=== PATIENT | male | born 1985 | race Caucasian/White ===

== ENCOUNTER 2016-12-03 09:53 | Inpatient (IN) | payer OTHER ==
[2016-12-03 12:51] VITALS: BMI 22.8
--- NOTE | 2016-12-03 16:28 | HP ---
COWS - Scale Resting Pulse: 1= [place] 81-100 Sweatin=Flushed/Facial Moisture Restless Observation: 3= Extraneous Movement Pupil Size: 2= Moderately Dilated Bone or Joint Aches: 2= Severe Diffuse Aches Runny Nose/ Eye Tearin= Runny Nose/Eyes GI Upset > 30mins: 3= Vomiting/Diarrhea Tremor Observation: 2= Slight Tremor Visible Yawning Observation: 2= >3x During Session Anxiety or Irritability: 2=Irritable/Anxious Goose Flesh Skin: 0=Smooth Skin COWS Score: 21 CIWA Score - CIWA Score Nausea/Vomitin Muscle Tremors: 3 Anxiety: 3 Agitation: 3 Paroxysmal Sweats: 2 Orientation: 0-Oriented Tacttile Disturbances: 2-Mild Itch/Numbness/Burn Auditory Disturbances: 2-Mild Harshness/Frighten Visual Disturbances: 2-Mild Sensitivity Headache: 2-Mild CIWA-Ar Total Score: 22 Admission ROS BHS - HPI Chief Complaint: i need help to stop using drugs heroin,xanax,cocaine Allergies/Adverse Reactions: Allergies Allergy/AdvReac Type Severity Reaction Status Date / Time No Known Allergies Allergy Verified 12/03/16 16:18 History of Present Illness: this 31 years old male with heroin,xanax and cocaine dependence,seeking help for detox,last treatment [facility]09[facility]01 anxiety,depression,insomnia nicotine dependence longest sobriety 2 years multiple admissions in the past,keep relapsing Exam Limitations: No Limitations - Ebola screening Have you traveled outside of the country in the last 21 days: No Have you been sick,other than usual withdrawal symptoms: No - Review of Systems Constitutional: Chills, Diaphoresis, Loss of Appetite, Malaise, Night Sweats, Changes in sleep, Weakness, Unintentional Wgt. Loss EENT: reports: Tearing, Nose Congestion Respiratory: reports: No Symptoms reported Cardiac: reports: No Symptoms Reported GI: reports: Diarrhea, Nausea, Vomiting, Abdominal cramping : reports: No Symptoms Reported Musculoskeletal: reports: Back Pain, Joint Pain, Muscle Pain, Joint Stiffness Integumentary: reports: Dryness Neuro: reports: Headache, Tremors Endocrine: reports: No Symptoms Reported Hematology: reports: No Symptoms Reported Psychiatric: reports: Anxious, Depressed, other (insomnia) Patient History - Patient Medical History Hx Anemia: No Hx Asthma: No Hx Chronic Obstructive Pulmonary Disease (COPD): No Hx Cancer: No Hx Cardiac Disorders: No Hx Congestive Heart Failure: No Hx Hypertension: No Hx Hypercholesterolemia: No Hx Pacemaker: No HX Cerebrovascular Accident: No Hx Seizures: No Hx Dementia: No Hx Diabetes: No Hx Gastrointestinal Disorders: No Hx Liver Disease: No Hx Genitourinary Disorders: No Hx Sexually Transmitted Disorders: No Hx Renal Disease (ESRD): No Hx Thyroid Disease: No Hx Human Immunodeficiency Virus (HIV): No (last 09/01 negative) Hx Hepatitis C: No Hx Depression: Yes (anxiety,insomnia) Hx Suicide Attempt: No Hx Bipolar Disorder: No Hx Schizophrenia: No Other Medical History: no suicidal,no homicidal - Patient Surgical History Past Surgical History: No - PPD History Previous Implant?: Yes Documented Results: Negative w/o proof Implanted On Prior [facility] Admission?: No PPD to be Administered?: Yes - Smoking Cessation Smoking history: Current every day smoker Have you smoked in the past 12 months: Yes Aproximately how many cigarettes per day: 20 Cigars Per Day: 0 Hx Chewing Tobacco Use: No Initiated information on smoking cessation: Yes 'Breaking Loose' booklet given: 12/03/16 - Substance & Tx. History Hx Alcohol Use: No Hx Substance Use: Yes Substance Use Type: Cocaine, Heroin, Tranquilizers Hx Substance Use Treatment: Yes ([facility] 09/01) - Substances Abused Heroin Route: Injection Frequency: Daily Amount used: 15 bags Age of first use: 25 Date of Last Use: 12/03/16 Alprazolam (Xanax) Route: Oral Frequency: Daily Amount used: 4mg Age of first use: 12 Date of Last Use: 12/02/16 Cocaine Route: Injection Frequency: Daily Amount used: 1 gram Age of first use: 18 Date of Last Use: 12/02/16 Family Disease History - Family Disease History Family History: Denies Admission Physical Exam BHS - Vital Signs Vital Signs: Vital Signs - 24 hr 12/03/16 12:49 Temperature 96.0 F L Pulse Rate 87 Respiratory 18 Rate Blood Pressure 124/74 - Physical General Appearance: Yes: Moderate Distress, Tremorous, Irritable, Sweating, Anxious HEENTM: Yes: Normocephalic, BELEN, Pharynx Normal Respiratory: Yes: Lungs Clear, Normal Breath Sounds, No Respiratory Distress Neck: Yes: Within Normal Limits, Supple, Trachea in good position Breast: Yes: Within Normal Limits Cardiology: Yes: Within Normal Limits, Regular Rhythm, Regular Rate, S1, S2 Abdominal: Yes: Within Normal Limits, Normal Bowel Sounds, Non Tender, Flat, Soft Genitourinary: Yes: Within Normal Limits Back: Yes: Muscle Spasm Musculoskeletal: Yes: full range of Motion, Back pain, Joint Stiffness, Muscle Pain Extremities: Yes: Normal Range of Motion, Tremors Neurological: Yes: nurse midwife II-XII NML intact, Alert, Motor Strength 5/5 Integumentary: Yes: Dry, Track Luther Lymphatic: Yes: Within Normal Limits - Diagnostic (1) Opioid dependence with withdrawal Current Visit: Yes Status: Acute (2) Cocaine dependence Current Visit: Yes Status: Acute (3) Uncomplicated sedative, hypnotic or anxiolytic withdrawal Current Visit: Yes Status: Acute (4) Anxiety and depression Current Visit: Yes Status: Acute (5) Insomnia Current Visit: Yes Status: Acute (6) Weight loss Current Visit: Yes Status: Acute Cleared for Admission [facility] - Detox or Rehab [facility] Level of Care: Medically Managed Detox Regimen/Protocol: Methadone [facility] Breath Alcohol Content Breath Alcohol Content: 0 Urine Drug Screen - Results Drug Screen Negative: No Urine Drug Screen Results: THC-Marijuana, ABUNDIO-Cocaine, OPI-Opiates
[2016-12-03] MEDS ORDERED: MAGNESIUM HYDROX 2400MG/30ML ORAL SUSPENSION 30 ML CUP PO PRN (16:38)
[2016-12-03] MEDS ORDERED: LOPERAMIDE HCL 2 MG CAPSULE PO PRN (16:38)
[2016-12-03] MEDS ORDERED: MAGNESIUM CITRATE 300 ML BOTTLE PO PRN (16:38)
[2016-12-03] MEDS ORDERED: guaiFENesin/D-METHORPHAN HB 10 ML UNIT-DOSE CUPS PO PRN (16:38)
[2016-12-03] MEDS ORDERED: MAG HYDROX/AL HYDROX/SIMETH 30 ML UNIT-DOSE CUP PO PRN (16:38)
[2016-12-03] MEDS ORDERED: MENTHOL/PHENOL 1 EACH UD MM PRN (16:38)
[2016-12-03] MEDS ORDERED: P-EPHED 60MG/TRIPROLIDI 2.5MG TABLET PO PRN (16:38)
[2016-12-03] MEDS ORDERED: IBUPROFEN 400 MG TABLET (FP) PO PRN (16:38)
[2016-12-03] MEDS ORDERED: ACETAMINOPHEN 325 MG TABLET (FP) PO PRN (16:38)
[2016-12-03] MEDS: diazePAM 5 MG TABLET PO PRN ×2 (17:09→22:05)
[2016-12-03] MEDS: NICOTINE 21 MG/24 HOURS TOPICAL PATCH TD SCH (17:14)
[2016-12-03] MEDS ORDERED: METHADONE HCL 10 MG TABLET (FOR DETOX USE ONLY) PO ONE ×2 (17:15→23:00)
[2016-12-03] MEDS: NICOTINE POLACRILEX 4 MG GUM BUC PRN ×2 (18:05→23:11)
[2016-12-03] MEDS: CYCLOBENZAPRINE HCL 10 MG TABLET (FP) PO PRN (22:05)
[2016-12-03] MEDS: THIAMINE HCL 100 MG TABLET (FP) PO SCH (22:05)
[2016-12-03] MEDS: cloNIDine HCL 0.1 MG TABLET PO SCH (22:05)
[2016-12-03] MEDS: diphenhydrAMINE HCL 50 MG CAPSULE PO PRN (22:06)
[2016-12-04] MEDS: diazePAM 5 MG TABLET PO PRN ×4 (05:55→19:37)
--- NOTE | 2016-12-04 08:38 | CONSULT ---
[facility] Psychiatric Consult - Data Date of interview: 12/04/16 Admission source: [facility] Identifying data: This is 31 years old male with no psychiatric hospitalization history intoxicated with: Opioids, Cocaine, Xanax and Nicotine Substance Abuse History: Smoking history: Current every day smoker. Have you smoked in the past 12 months: Yes. Aproximately how many cigarettes per day: 20. Cigars Per Day: 0. Hx Chewing Tobacco Use: No. Initiated information on smoking cessation: Yes. 'Breaking Loose' booklet given: 12/03/16. - Substance & Tx. History. Hx Alcohol Use: No. Hx Substance Use: Yes. Substance Use Type : Cocaine, Heroin, Tranquilizers. Hx Substance Use Treatment: Yes ([facility] 09/01). - Substances Abused. Heroin. Route: Injection. Frequency : Daily. Amount used: 15 bags. Age of first use: 25. Date of Last Use: . Alprazolam (Xanax). Route: Oral. Frequency: Daily. Amount used: 4mg. Age of first use: 12. Date of Last Use: 12/02/16. Cocaine. Route: Injection. Frequency: Daily. Amount used: 1 gram. Age of first use: 18. Date of Last Use: 12/02/16. Family Disease History Medical History: Weight loss Psychiatric History: Patient reprots history of depression, reports taking prior to admission: Celexa 40mg poqd. Gabapentin 300mg po tid. Ambien 10mg po qhs Physical/Sexual Abuse/Trauma History: Denies Additional Comment: Celexa 40mg poqd. Gabapentin 300mg po tid. Ambien 10mg po qhs Mental Status Exam - Mental Status Exam Alert and Oriented to: Person Cognitive Function: Fair Patient Appearance: Unkempt Mood: Sad Affect: Mood Congruent Patient Behavior: Cooperative Speech Pattern: Appropriate Voice Loudness: Mildly Soft/Quiet Thought Process: Circumstantial Thought Disorder: Being Controlled Hallucinations: Denies Suicidal Ideation: Denies Homicidal Ideation: Denies Insight/Judgement: Fair Sleep: Difficulty falling asleep Appetite: Weight loss Muscle strength/Tone: Normal Gait/Station: Shuffling Additional Comments: Celexa 40mg poqd. Gabapentin 300mg po tid. Ambien 10mg po qhs Psychiatric Findings - Problem List ([place] 1, 2,3) (1) Cocaine dependence Current Visit: Yes Status: Acute (2) Opioid dependence with withdrawal Current Visit: Yes Status: Acute (3) Uncomplicated sedative, hypnotic or anxiolytic withdrawal Current Visit: Yes Status: Acute (4) Nicotine dependence Current Visit: Yes Status: Acute (5) Drug-induced mood disorder Current Visit: Yes Status: Acute - Initial Treatment Plan Initial Treatment Plan: Celexa 40mg poqd. Gabapentin 300mg po tid. Ambien 10mg po qhs
[2016-12-04 09:59] LABS: MCH 29.3 pg (25.7-33.7); MCHC 33.1 g/dl (32.0-35.9); MEAN CELL VOLUME 88.6 fl (80-96); MEAN PLT VOLUME 8.6 fl (7.5-11.1); PLATELET COUNT 220 K/MM3 (134-434); RDW 12.3 % (11.9-15.9); WHITE BLOOD COUNT 6.7 K/mm3 (4.0-10.0)
[2016-12-04] MEDS ORDERED: METHADONE HCL 10 MG TABLET (FOR DETOX USE ONLY) PO ONE (10:00)
[2016-12-04 10:08] LABS: ANION GAP 6 (8-16); BILIRUBIN,TOTAL 0.2 mg/dL (0.2-1.0); CALCIUM 8.7 mg/dL (8.5-10.1); CO2 30 mmol/L (21-32); CREATININE 0.9 mg/dL (0.7-1.3); GLUCOSE,RANDOM 78 mg/dL (74-106); SGOT/AST 10 U/L (15-37); SGPT/ALT 22 U/L (12-78); TOT PROT 5.9 g/dl (6.4-8.2)
[2016-12-04 10:09] LABS: ALK PHOS 58 U/L (45-117)
[2016-12-04] MEDS: CYCLOBENZAPRINE HCL 10 MG TABLET (FP) PO PRN ×2 (10:16→22:04)
[2016-12-04] MEDS: cloNIDine HCL 0.1 MG TABLET PO SCH ×2 (10:16→22:04)
[2016-12-04] MEDS: PRENATAL VITAMINS W/ FOLIC ACID TABLET (FP) PO SCH (10:16)
[2016-12-04] MEDS: NICOTINE 21 MG/24 HOURS TOPICAL PATCH TD SCH (10:17)
[2016-12-04] MEDS: CITALOPRAM HYDROBROMIDE 20 MG TABLET (FP) PO SCH (10:18)
[2016-12-04] MEDS: NICOTINE POLACRILEX 4 MG GUM BUC PRN ×2 (10:19→20:09)
[2016-12-04] MEDS ORDERED: ONDANSETRON *ODT* 4 MG TABLET SL PRN (10:35)
--- NOTE | 2016-12-04 11:54 | PN ---
S CIWA - CIWA Score Nausea/Vomitin Muscle Tremors: 3 Anxiety: 4-Mod. Anxious/Guarded Agitation: 1-Slight > Activity Paroxysmal Sweats: 3 Orientation: 0-Oriented Tacttile Disturbances: 3-Moderate Itch/Numb/Burn Auditory Disturbances: 0-None Visual Disturbances: 0-None Headache: 3-Moderate CIWA-Ar Total Score: 20 BHS COWS - Scale Resting Pulse: 0= [place] 80 or Below Sweatin=Flushed/Facial Moisture Restless Observation: 0= Sits Still Pupil Size: 0= Normal to Room Light Bone or Joint Aches: 2= Severe Diffuse Aches Runny Nose/ Eye Tearin= Runny Nose/Eyes GI Upset > 30mins: 2= Nausea/Diarrhea Tremor Observation of Outstretched Hands: 2= Slight Tremor Visible Yawning Observation: 2= >3x During Session Anxiety or Irritability: 2=Irritable/Anxious Goose Flesh Skin: 3=Piloerection COWS Score: 17 BHS Progress Note (SOAP) Subjective: Nausea, Tremors, H/A, Fatigue, Body Aches, Sweating. Objective: PT. A & O X 3. NO ACUTE DISTRESS. 12/04/16 11:53 Vital Signs Temperature 97 F L 12/04/16 09:12 Pulse Rate 65 12/04/16 09:12 Respiratory Rate 18 12/04/16 09:12 Blood Pressure 109/61 12/04/16 09:12 O2 Sat by Pulse Oximetry (%) Laboratory Tests 12/04/16 12/04/16 12/04/16 06:30 06:30 06:30 WBC 6.7 RBC 4.51 Hgb 13.2 Hct 39.9 MCV 88.6 MCH 29.3 MCHC 33.1 RDW 12.3 Plt Count 220 MPV 8.6 Sodium 141 Potassium 3.8 Chloride 105 Carbon Dioxide 30 Anion Gap 6 L BUN 13 Creatinine 0.9 Creat Clearance w eGFR > 60 Random Glucose 78 Calcium 8.7 Total Bilirubin 0.2 AST 10 L ALT 22 Alkaline Phosphatase 58 Total Protein 5.9 L Albumin 3.0 L RPR Titer Nonreactive LABS NOTED. UA NOT YET COLLECTED. 12/04/16 12:01 Assessment: 12/04/16 12:00 WITHDRAWAL SYMPTOMS. Plan: CONTINUE DETOX. PRN ZOFRAN SL FOR NAUSEA.
[2016-12-04 14:20] LABS: URINE APPEARANCE CLEAR; URINE BILIRUBIN NEGATIVE (NEGATIVE); URINE BLOOD NEGATIVE (NEGATIVE); URINE COLOR LTYELLOW; URINE GLUCOSE (UA) NEGATIVE (NEGATIVE); URINE KETONE NEGATIVE (NEGATIVE); URINE LEUK ESTERASE NEGATIVE (NEGATIVE); URINE NITRITE NEGATIVE (NEGATIVE); URINE PROTEIN NEGATIVE (NEGATIVE); URINE UROBILINOGEN NEGATIVE mg/dL (0.2-1.0)
[2016-12-04] MEDS: GABAPENTIN 300 MG CAPSULE (FP) PO SCH ×2 (14:53→22:04)
--- NOTE | 2016-12-04 16:37 | EKG ---
Test Reason : Blood Pressure : / mmHG Vent. Rate : 079 BPM Atrial Rate : 079 BPM P-R Int : 132 ms QRS Dur : 084 ms QT Int : 398 ms P-R-T Axes : 066 063 050 degrees QTc Int : 456 ms NORMAL SINUS RHYTHM NORMAL ECG NO PREVIOUS ECGS AVAILABLE Confirmed by NEELIMA HINSON MD ([id number]) on 12/04/2016 4:37:32 PM Referred By: Confirmed By:NEELIMA HINSON MD
[2016-12-04] MEDS: THIAMINE HCL 100 MG TABLET (FP) PO SCH (22:03)
[2016-12-04] MEDS: ZOLPIDEM TARTRATE 10 MG TABLET (PARK CARE ONLY) PO PRN (22:04)
[2016-12-05] MEDS: diazePAM 5 MG TABLET PO PRN ×5 (04:16→22:04)
[2016-12-05] MEDS: GABAPENTIN 300 MG CAPSULE (FP) PO SCH ×3 (07:39→22:04)
[2016-12-05] MEDS ORDERED: METHADONE HCL 5 MG TABLET (FOR DETOX USE ONLY) PO ONE (10:00)
[2016-12-05] MEDS: NICOTINE 21 MG/24 HOURS TOPICAL PATCH TD SCH (10:03)
[2016-12-05] MEDS: CITALOPRAM HYDROBROMIDE 20 MG TABLET (FP) PO SCH (10:04)
[2016-12-05] MEDS: PRENATAL VITAMINS W/ FOLIC ACID TABLET (FP) PO SCH (10:04)
[2016-12-05] MEDS ORDERED: GABAPENTIN 300 MG CAPSULE (FP) PO ONE (10:35)
[2016-12-05] MEDS: NICOTINE POLACRILEX 4 MG GUM BUC PRN ×3 (10:50→22:04)
--- NOTE | 2016-12-05 11:36 | PN ---
S CIWA - CIWA Score Nausea/Vomitin Muscle Tremors: 3 Anxiety: 4-Mod. Anxious/Guarded Agitation: 3 Paroxysmal Sweats: 3 Orientation: 0-Oriented Tacttile Disturbances: 1-Very Mild Itch/Numbness Auditory Disturbances: 0-None Visual Disturbances: 0-None Headache: 3-Moderate CIWA-Ar Total Score: 20 BHS Progress Note (SOAP) Subjective: Anxious, Lower Back ache ,H/A, Body Aches,Nausea, Tremors, Sweating. Objective: PT. A & O X 3, OBSERVED AMBULATING ON UNIT. NO ACUTE DISTRESS. 12/05/16 11:37 Vital Signs Temperature 97.4 F L 12/05/16 09:09 Pulse Rate 75 12/05/16 09:55 Respiratory Rate 20 12/05/16 09:09 Blood Pressure 109/66 12/05/16 09:55 O2 Sat by Pulse Oximetry (%) Laboratory Tests 12/04/16 12/04/16 12/04/16 06:30 06:30 06:30 WBC 6.7 RBC 4.51 Hgb 13.2 Hct 39.9 MCV 88.6 MCH 29.3 MCHC 33.1 RDW 12.3 Plt Count 220 MPV 8.6 Sodium 141 Potassium 3.8 Chloride 105 Carbon Dioxide 30 Anion Gap 6 L BUN 13 Creatinine 0.9 Creat Clearance w eGFR > 60 Random Glucose 78 Calcium 8.7 Total Bilirubin 0.2 AST 10 L ALT 22 Alkaline Phosphatase 58 Total Protein 5.9 L Albumin 3.0 L Urine Color Urine Appearance Urine pH Ur Specific [place] Urine Protein Urine Glucose (UA) Urine Ketones Urine Blood Urine Nitrite Urine Bilirubin Urine Urobilinogen Ur Leukocyte Esterase RPR Titer Nonreactive 12/04/16 12:30 WBC RBC Hgb Hct MCV MCH MCHC RDW Plt Count MPV Sodium Potassium Chloride Carbon Dioxide Anion Gap BUN Creatinine Creat Clearance w eGFR Random Glucose Calcium Total Bilirubin AST ALT Alkaline Phosphatase Total Protein Albumin Urine Color Ltyellow Urine Appearance Clear Urine pH 6.0 Ur Specific [place] 1.020 Urine Protein Negative Urine Glucose (UA) Negative Urine Ketones Negative Urine Blood Negative Urine Nitrite Negative Urine Bilirubin Negative Urine Urobilinogen Negative Ur Leukocyte Esterase Negative RPR Titer LABS NOTED. Assessment: 12/05/16 11:38 WITHDRAWAL SYMPTOMS. Plan: CONTINUE DETOX. D/C CLONIDINE DUE TO LAST SEVERAL LOW BP READINGS. INCREASE PO FLUID INTAKE.
[2016-12-05] MEDS: hydrOXYzine PAMOATE 50 MG CAPSULE (FP) PO PRN (16:45)
[2016-12-05] MEDS: ZOLPIDEM TARTRATE 10 MG TABLET (PARK CARE ONLY) PO PRN (22:04)
[2016-12-05] MEDS: THIAMINE HCL 100 MG TABLET (FP) PO SCH (22:04)
[2016-12-05] MEDS: CYCLOBENZAPRINE HCL 10 MG TABLET (FP) PO PRN (22:04)
[2016-12-06] MEDS: diazePAM 5 MG TABLET PO PRN ×3 (04:33→14:37)
[2016-12-06] MEDS: GABAPENTIN 300 MG CAPSULE (FP) PO SCH ×3 (05:53→21:54)
[2016-12-06] MEDS: NICOTINE POLACRILEX 4 MG GUM BUC PRN ×4 (05:59→22:35)
[2016-12-06] MEDS ORDERED: METHADONE HCL 5 MG TABLET (FOR DETOX USE ONLY) PO ONE (10:00)
[2016-12-06] MEDS: PRENATAL VITAMINS W/ FOLIC ACID TABLET (FP) PO SCH (10:31)
[2016-12-06] MEDS: CITALOPRAM HYDROBROMIDE 20 MG TABLET (FP) PO SCH (10:31)
[2016-12-06] MEDS: NICOTINE 21 MG/24 HOURS TOPICAL PATCH TD SCH (10:33)
--- NOTE | 2016-12-06 13:16 | PN ---
BHS Progress Note (SOAP) Subjective: Body Aches, Tremors, Sweating, Nausea, Stomach cramping, Interrupted sleep, Lower Back ache. Objective: PT. A & O X 3, OBSERVED AMBULATING ON UNIT. NO ACUTE DISTRESS. 12/06/16 13:15 Vital Signs Temperature 97.1 F L 12/06/16 09:57 Pulse Rate 76 12/06/16 09:57 Respiratory Rate 18 12/06/16 09:57 Blood Pressure 110/65 12/06/16 09:57 O2 Sat by Pulse Oximetry (%) Laboratory Tests 12/04/16 12/04/16 12/04/16 06:30 06:30 06:30 WBC 6.7 RBC 4.51 Hgb 13.2 Hct 39.9 MCV 88.6 MCH 29.3 MCHC 33.1 RDW 12.3 Plt Count 220 MPV 8.6 Sodium 141 Potassium 3.8 Chloride 105 Carbon Dioxide 30 Anion Gap 6 L BUN 13 Creatinine 0.9 Creat Clearance w eGFR > 60 Random Glucose 78 Calcium 8.7 Total Bilirubin 0.2 AST 10 L ALT 22 Alkaline Phosphatase 58 Total Protein 5.9 L Albumin 3.0 L Urine Color Urine Appearance Urine pH Ur Specific [place] Urine Protein Urine Glucose (UA) Urine Ketones Urine Blood Urine Nitrite Urine Bilirubin Urine Urobilinogen Ur Leukocyte Esterase RPR Titer Nonreactive 12/04/16 12:30 WBC RBC Hgb Hct MCV MCH MCHC RDW Plt Count MPV Sodium Potassium Chloride Carbon Dioxide Anion Gap BUN Creatinine Creat Clearance w eGFR Random Glucose Calcium Total Bilirubin AST ALT Alkaline Phosphatase Total Protein Albumin Urine Color Ltyellow Urine Appearance Clear Urine pH 6.0 Ur Specific [place] 1.020 Urine Protein Negative Urine Glucose (UA) Negative Urine Ketones Negative Urine Blood Negative Urine Nitrite Negative Urine Bilirubin Negative Urine Urobilinogen Negative Ur Leukocyte Esterase Negative RPR Titer LABS NOTED. Assessment: 12/06/16 13:15 WITHDRAWAL SYMPTOMS. Plan: CONTINUE DETOX.
[2016-12-06] MEDS: hydrOXYzine PAMOATE 50 MG CAPSULE (FP) PO PRN (21:54)
[2016-12-06] MEDS: ZOLPIDEM TARTRATE 10 MG TABLET (PARK CARE ONLY) PO PRN (21:54)
[2016-12-06] MEDS: diphenhydrAMINE HCL 50 MG CAPSULE PO PRN (21:55)
[2016-12-06] MEDS: THIAMINE HCL 100 MG TABLET (FP) PO SCH (21:55)
[2016-12-06] MEDS: CYCLOBENZAPRINE HCL 10 MG TABLET (FP) PO PRN (21:55)
[2016-12-07] MEDS: GABAPENTIN 300 MG CAPSULE (FP) PO SCH ×3 (05:26→22:02)
[2016-12-07] MEDS ORDERED: METHADONE HCL 10 MG TABLET (FOR DETOX USE ONLY) PO ONE (10:00)
[2016-12-07] MEDS: PRENATAL VITAMINS W/ FOLIC ACID TABLET (FP) PO SCH (10:06)
[2016-12-07] MEDS: CITALOPRAM HYDROBROMIDE 20 MG TABLET (FP) PO SCH (10:07)
[2016-12-07] MEDS: NICOTINE 21 MG/24 HOURS TOPICAL PATCH TD SCH (10:09)
[2016-12-07] MEDS: NICOTINE POLACRILEX 4 MG GUM BUC PRN ×4 (10:11→21:04)
--- NOTE | 2016-12-07 13:17 | PN ---
S Progress Note (SOAP) Subjective: Sweating, nausea, anxious Objective: 12/07/16 13:16 Last Vital Signs Temp Pulse Resp BP Pulse Ox 96.8 F L 82 18 134/72 12/07/16 10:00 12/07/16 10:00 12/07/16 10:00 12/07/16 10:00 Laboratory Tests 12/04/16 12/04/16 12/04/16 06:30 06:30 06:30 WBC 6.7 RBC 4.51 Hgb 13.2 Hct 39.9 MCV 88.6 MCH 29.3 MCHC 33.1 RDW 12.3 Plt Count 220 MPV 8.6 Sodium 141 Potassium 3.8 Chloride 105 Carbon Dioxide 30 Anion Gap 6 L BUN 13 Creatinine 0.9 Creat Clearance w eGFR > 60 Random Glucose 78 Calcium 8.7 Total Bilirubin 0.2 AST 10 L ALT 22 Alkaline Phosphatase 58 Total Protein 5.9 L Albumin 3.0 L Urine Color Urine Appearance Urine pH Ur Specific [place] Urine Protein Urine Glucose (UA) Urine Ketones Urine Blood Urine Nitrite Urine Bilirubin Urine Urobilinogen Ur Leukocyte Esterase RPR Titer Nonreactive 12/04/16 12:30 WBC RBC Hgb Hct MCV MCH MCHC RDW Plt Count MPV Sodium Potassium Chloride Carbon Dioxide Anion Gap BUN Creatinine Creat Clearance w eGFR Random Glucose Calcium Total Bilirubin AST ALT Alkaline Phosphatase Total Protein Albumin Urine Color Ltyellow Urine Appearance Clear Urine pH 6.0 Ur Specific [place] 1.020 Urine Protein Negative Urine Glucose (UA) Negative Urine Ketones Negative Urine Blood Negative Urine Nitrite Negative Urine Bilirubin Negative Urine Urobilinogen Negative Ur Leukocyte Esterase Negative RPR Titer Labs noted Assessment: 12/07/16 13:16 Withdrawal symptoms Plan: Continue detox Encouraged to drink lots of water for hydration
[2016-12-07] MEDS: CYCLOBENZAPRINE HCL 10 MG TABLET (FP) PO PRN ×2 (13:18→22:01)
[2016-12-07] MEDS: diphenhydrAMINE HCL 50 MG CAPSULE PO PRN (14:38)
[2016-12-07] MEDS: hydrOXYzine PAMOATE 50 MG CAPSULE (FP) PO PRN (17:17)
[2016-12-07] MEDS: ZOLPIDEM TARTRATE 10 MG TABLET (PARK CARE ONLY) PO PRN (21:59)
[2016-12-07] MEDS ORDERED: BACITRACIN 15 GM TUBE TOPICAL OINTMENT TP SCH (22:00)
[2016-12-07] MEDS: THIAMINE HCL 100 MG TABLET (FP) PO SCH (22:01)
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
[2016-12-08] MEDS: hydrOXYzine PAMOATE 50 MG CAPSULE (FP) PO PRN (05:48)
[2016-12-08] MEDS: GABAPENTIN 300 MG CAPSULE (FP) PO SCH (05:49)
[2016-12-08] MEDS: CYCLOBENZAPRINE HCL 10 MG TABLET (FP) PO PRN (05:49)
[2016-12-08] MEDS: NICOTINE POLACRILEX 4 MG GUM BUC PRN (05:59)
[2016-12-08] MEDS ORDERED: METHADONE HCL 5 MG TABLET (FOR DETOX USE ONLY) PO ONE (06:00)
[2016-12-08 06:34] VITALS: BP 120/71; PULSE 74; TEMP 97
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
== END 2016-12-08 08:59 | disposition home or self-care (01) | DRG 773 ==
LOC: YASAS 09:53 → Y3N 16:28
PROVIDERS: ADMIT Internal Medicine Addiction Medicine; ATTEND Internal Medicine Addiction Medicine
PROC: HZ2ZZZZ Detoxification Services for Substance Abuse Treatment (ICD-10-PCS; principal; 2016-12-03)
DX: F11.23 Opioid dependence with withdrawal (principal); F13.230 Sedative, hypnotic or anxiolytic dependence with withdrawal, uncomplicated; F14.20 Cocaine dependence, uncomplicated; F17.210 Nicotine dependence, cigarettes, uncomplicated; F19.24 Other psychoactive substance dependence with psychoactive substance-induced mood disorder; F41.8 Other specified anxiety disorders; G47.00 Insomnia, unspecified; Z87.898 Personal history of other specified conditions; S05.92XA Unspecified injury of left eye and orbit, initial encounter; Y04.0XXA Assault by unarmed brawl or fight, initial encounter; Y92.239 Unspecified place in hospital as the place of occurrence of the external cause
CPT/HCPCS: 36415; 80053; 81003; 85027; 86593; 93005; 93010

== ENCOUNTER 2016-12-07 23:48 | Emergency (ER) | payer OTHER ==
[2016-12-07 23:59] VITALS: BP 132/73; TEMP 98.1; BMI 24.3
[2016-12-08] MEDS ORDERED: OXYCODONE/APAP 5/325MG COMBO TABLET PO ONE ×2 (00:31→02:13)
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
[2016-12-08] MEDS ORDERED: OXYCODONE/APAP 5/325MG COMBO TABLET ONE ×2 (00:38→02:20)
[2016-12-08 00:42] VITALS: PULSE 89
[2016-12-08] MEDS ORDERED: IBUPROFEN 400 MG TABLET (FP) PO ONE ×2 (02:13→02:20)
== END 2016-12-08 03:01 | disposition home or self-care (01) ==
LOC: JER 23:48
DX: S00.83XA Contusion of other part of head, initial encounter (principal); M54.2 Cervicalgia; Y04.2XXA Assault by strike against or bumped into by another person, initial encounter; Y93.89 Activity, other specified; Y92.89 Other specified places as the place of occurrence of the external cause; Y99.8 Other external cause status
CPT/HCPCS: 70450-TC; 70486-TC; 72125-TC; 99283-25

== ENCOUNTER 2017-02-26 16:27 | Inpatient (IN) | payer OTHER ==
[2017-02-26 19:10] VITALS: BMI 23.3
--- NOTE | 2017-02-26 20:29 | HP ---
COWS - Scale Resting Pulse: 0= MI 80 or Below Sweatin= Chills/Flushing Restless Observation: 1= Difficult to Sit Still Pupil Size: 0= Normal to Room Light Bone or Joint Aches: 2= Severe Diffuse Aches Runny Nose/ Eye Tearin= Runny Nose/Eyes GI Upset > 30mins: 2= Nausea/Diarrhea Tremor Observation: 2= Slight Tremor Visible Yawning Observation: 2= >3x During Session Anxiety or Irritability: 2=Irritable/Anxious Goose Flesh Skin: 0=Smooth Skin COWS Score: 14 CIWA Score - CIWA Score Nausea/Vomitin-Mild Nausea/No Vomiting Muscle Tremors: 3 Anxiety: 3 Agitation: 4-Moderately Restless Paroxysmal Sweats: 1-Minimal Palms Moist Orientation: 1-Uncertain about Date Tacttile Disturbances: 0-None Auditory Disturbances: 0-None Visual Disturbances: 0-None Headache: 1-Very Mild CIWA-Ar Total Score: 14 Admission ROS BHS - HPI Chief Complaint: withdrawal sx Allergies/Adverse Reactions: Allergies Allergy/AdvReac Type Severity Reaction Status Date / Time No Known Allergies Allergy Verified 12/07/16 23:55 History of Present Illness: 31 years old male with long history of opiate xanax nicotine dependence denies medical issue has anxiety and depression is admitted to detox Exam Limitations: No Limitations - Ebola screening Have you traveled outside of the country in the last 21 days: No Have you had contact with anyone from an Ebola affected area: No Have you been sick,other than usual withdrawal symptoms: No Do you have a fever: No - Review of Systems Constitutional: Loss of Appetite, Changes in sleep, Unintentional Wgt. Loss, Unexplained wgt Loss EENT: reports: No Symptoms Reported Respiratory: reports: No Symptoms reported Cardiac: reports: No Symptoms Reported GI: reports: Nausea, Poor Fluid Intake, Abdominal cramping : reports: No Symptoms Reported Musculoskeletal: reports: Back Pain, Joint Pain, Muscle Pain, Neck Pain Integumentary: reports: Change in Color (right and left arms iv opiate) Neuro: reports: Tremors Endocrine: reports: No Symptoms Reported Hematology: reports: No Symptoms Reported Psychiatric: reports: Judgement Intact, Orientated x3, Anxious, Depressed Other Systems: Reviewed and Negative Patient History - Patient Medical History Hx Anemia: No Hx Asthma: No Hx Chronic Obstructive Pulmonary Disease (COPD): No Hx Cancer: No Hx Cardiac Disorders: No Hx Congestive Heart Failure: No Hx Hypertension: No Hx Hypercholesterolemia: No Hx Pacemaker: No HX Cerebrovascular Accident: No Hx Seizures: No Hx Dementia: No Hx Diabetes: No Hx Gastrointestinal Disorders: No Hx Liver Disease: No Hx Genitourinary Disorders: No Hx Sexually Transmitted Disorders: No Hx Renal Disease (ESRD): No Hx Thyroid Disease: No Hx Human Immunodeficiency Virus (HIV): No (last 09/01 negative) Hx Hepatitis C: No Hx Depression: Yes (anxiety,insomnia) Hx Suicide Attempt: No Hx Bipolar Disorder: No Hx Schizophrenia: No - Patient Surgical History Past Surgical History: No - PPD History Previous Implant?: Yes Documented Results: Negative w/proof Implanted On Prior [facility] Admission?: Yes Date: 12/05/16 PPD to be Administered?: No - Smoking Cessation Smoking history: Current every day smoker Have you smoked in the past 12 months: Yes Aproximately how many cigarettes per day: 20 Cigars Per Day: 0 Hx Chewing Tobacco Use: No Initiated information on smoking cessation: Yes 'Breaking Loose' booklet given: 02/26/17 - Substance & Tx. History Hx Alcohol Use: No Hx Substance Use: Yes Substance Use Type: Cocaine, Heroin, Tranquilizers Hx Substance Use Treatment: Yes (12/03-12/08/16 [facility] - Substances Abused Alprazolam (Xanax) Route: Oral Frequency: 3-6 times per week Amount used: 12 mg Age of first use: 21 Date of Last Use: 02/25/17 Heroin Route: Injection Frequency: Daily Amount used: 30 bags Age of first use: 25 Date of Last Use: 02/26/17 Family Disease History - Family Disease History Family Disease History: Heart Disease: Mother (), Other: Father ( /ms), Mother Admission Physical Exam BHS - Vital Signs Vital Signs: Vital Signs - 24 hr 02/26/17 19:06 Temperature 98.5 F Pulse Rate 75 Respiratory 18 Rate Blood Pressure 102/66 - Physical General Appearance: Yes: Appropriately Dressed, Mild Distress, Thin, Tremorous, Irritable, Sweating, Anxious HEENTM: Yes: Hearing grossly Normal, Normal ENT Inspection, Normocephalic, Normal Voice Respiratory: Yes: Chest Non-Tender, Lungs Clear, Normal Breath Sounds, No Respiratory Distress, No Accessory Muscle Use Neck: Yes: Supple, Trachea in good position Breast: Yes: Breasts Symetrical Cardiology: Yes: Regular Rhythm, Regular Rate, S1, S2 Abdominal: Yes: Non Tender, Soft Genitourinary: Yes: Within Normal Limits Back: Yes: Normal Inspection Musculoskeletal: Yes: full range of Motion, Gait Steady, Back pain, Muscle Pain Extremities: Yes: Normal Range of Motion, Non-Tender, Tremors Neurological: Yes: Fully Oriented, Alert, Motor Strength 5/5, Normal Response, Depressed Affect Integumentary: Yes: Warm, Track Luther Lymphatic: Yes: Within Normal Limits - Diagnostic (1) Anxiety and depression Current Visit: Yes Status: Suspected (2) Opioid dependence with withdrawal Current Visit: Yes Status: Acute (3) Uncomplicated sedative, hypnotic or anxiolytic withdrawal Current Visit: Yes Status: Acute (4) Weight loss Current Visit: Yes Status: Acute (5) Nicotine dependence Current Visit: Yes Status: Acute Qualifiers: Nicotine product type: cigarettes Substance use status: in withdrawal Qualified Code(s): F17.213 - Nicotine dependence, cigarettes, with withdrawal; F17.213 - Nicotine dependence, cigarettes, with withdrawal Cleared for Admission [facility] - Detox or Rehab [facility] Level of Care: Medically Managed Detox Regimen/Protocol: Methadone/Valium [facility] Breath Alcohol Content Breath Alcohol Content: 0 Urine Drug Screen - Results Drug Screen Negative: No Urine Drug Screen Results: ABUNDIO-Cocaine, OPI-Opiates, AMP-Amphetamines, MET- Methamphetamine, BZO-Benzodiazepines
[2017-02-26] MEDS ORDERED: IBUPROFEN 400 MG TABLET (FP) PO PRN (20:39)
[2017-02-26] MEDS ORDERED: LOPERAMIDE HCL 2 MG CAPSULE PO PRN (20:39)
[2017-02-26] MEDS ORDERED: diazePAM 5 MG TABLET PO ONE (20:39)
[2017-02-26] MEDS ORDERED: METHADONE HCL 10 MG TABLET (FOR DETOX USE ONLY) PO ONE ×2 (20:39→23:00)
[2017-02-26] MEDS ORDERED: MAGNESIUM CITRATE 300 ML BOTTLE PO PRN (20:39)
[2017-02-26] MEDS ORDERED: ACETAMINOPHEN 325 MG TABLET (FP) PO PRN (20:39)
[2017-02-26] MEDS ORDERED: MAG HYDROX/AL HYDROX/SIMETH 30 ML UNIT-DOSE CUP PO PRN (20:39)
[2017-02-26] MEDS ORDERED: guaiFENesin/D-METHORPHAN HB 10 ML UNIT-DOSE CUPS PO PRN (20:39)
[2017-02-26] MEDS ORDERED: MENTHOL/PHENOL 1 EACH UD MM PRN (20:39)
[2017-02-26] MEDS ORDERED: MAGNESIUM HYDROX 2400MG/30ML ORAL SUSPENSION 30 ML CUP PO PRN (20:39)
[2017-02-26] MEDS ORDERED: P-EPHED 60MG/TRIPROLIDI 2.5MG TABLET PO PRN (20:39)
[2017-02-26] MEDS ORDERED: diphenhydrAMINE HCL 50 MG CAPSULE PO PRN (20:39)
[2017-02-26] MEDS: GABAPENTIN 300 MG CAPSULE (FP) PO SCH (22:47)
[2017-02-26] MEDS: diazePAM 5 MG TABLET PO SCH (22:48)
[2017-02-26] MEDS: THIAMINE HCL 100 MG TABLET (FP) PO SCH (22:48)
[2017-02-27 02:00] LABS: URINE APPEARANCE CLOUDY; URINE BILIRUBIN NEGATIVE (NEGATIVE); URINE BLOOD NEGATIVE (NEGATIVE); URINE COLOR AMBER; URINE GLUCOSE (UA) NEGATIVE (NEGATIVE); URINE KETONE NEGATIVE (NEGATIVE); URINE NITRITE NEGATIVE (NEGATIVE)
[2017-02-27 02:02] LABS: URINE PROTEIN 1+ (NEGATIVE)
[2017-02-27 02:22] LABS: CALCIUM OXALATE CRYSTALS MANY /hpf (NONE SEEN); URINE BACTERIA RARE /hpf (NONE SEEN); URINE HYALINE CAST 4 /lpf; URINE MUCUS MANY; URINE RBC 4 /hpf (0-3); URINE WBC 2 /hpf (3-5)
[2017-02-27] MEDS: diazePAM 5 MG TABLET PO SCH ×3 (06:04→22:40)
[2017-02-27] MEDS: GABAPENTIN 300 MG CAPSULE (FP) PO SCH ×4 (06:04→23:17)
[2017-02-27 09:19] LABS: URINE LEUK ESTERASE Negative (NEGATIVE)
--- NOTE | 2017-02-27 09:24 | EKG ---
Test Reason : Blood Pressure : / mmHG Vent. Rate : 067 BPM Atrial Rate : 067 BPM P-R Int : 132 ms QRS Dur : 090 ms QT Int : 442 ms P-R-T Axes : 081 078 059 degrees QTc Int : 467 ms NORMAL SINUS RHYTHM POOR R WAVE PROGRESSION WHEN COMPARED WITH ECG OF 03-DEC-2016 16:12, NO SIGNIFICANT CHANGE WAS FOUND Confirmed by RERE APODACA MD ([id number]) on 02/27/2017 9:23:59 AM Referred By: ASHA ESPINOZA Confirmed By:RERE APODACA MD
[2017-02-27 09:53] LABS: MCH 28.7 pg (25.7-33.7); MEAN CELL VOLUME 86.8 fl (80-96); MEAN PLT VOLUME 8.5 fl (7.5-11.1); PLATELET COUNT 254 K/MM3 (134-434); RDW 13.1 % (11.9-15.9); WHITE BLOOD COUNT 5.4 K/mm3 (4.0-10.0)
[2017-02-27 09:55] LABS: ALBUMIN 2.9 g/dl (3.4-5.0); CALCIUM 8.4 mg/dL (8.5-10.1); GLUCOSE,RANDOM 90 mg/dL (74-106)
[2017-02-27 10:00] LABS: ALK PHOS 49 U/L (45-117); ANION GAP 5 (8-16); BILIRUBIN,TOTAL 0.5 mg/dL (0.2-1.0); CO2 31 mmol/L (21-32); CREATININE 0.8 mg/dL (0.7-1.3); SGOT/AST 14 U/L (15-37); SGPT/ALT 23 U/L (12-78); TOT PROT 6.2 g/dl (6.4-8.2)
[2017-02-27] MEDS ORDERED: METHADONE HCL 10 MG TABLET (FOR DETOX USE ONLY) PO SCH (10:00)
[2017-02-27] MEDS: diazePAM 5 MG TABLET PO PRN ×3 (10:04→23:17)
[2017-02-27] MEDS ORDERED: CYCLOBENZAPRINE HCL 10 MG TABLET (FP) PO PRN (10:07)
[2017-02-27] MEDS: PRENATAL VITAMINS W/ FOLIC ACID TABLET (FP) PO SCH (11:02)
[2017-02-27] MEDS: NICOTINE 21 MG/24 HOURS TOPICAL PATCH TD SCH (11:03)
--- NOTE | 2017-02-27 13:00 | PN ---
S CIWA - CIWA Score Nausea/Vomitin Muscle Tremors: 3 Anxiety: 5 Agitation: 2 Paroxysmal Sweats: 3 Orientation: 0-Oriented Tacttile Disturbances: 2-Mild Itch/Numbness/Burn Auditory Disturbances: 0-None Visual Disturbances: 0-None Headache: 3-Moderate CIWA-Ar Total Score: 21 BHS COWS - Scale Resting Pulse: 0= MI 80 or Below Sweatin= Chills/Flushing Restless Observation: 1= Difficult to Sit Still Pupil Size: 0= Normal to Room Light Bone or Joint Aches: 2= Severe Diffuse Aches Runny Nose/ Eye Tearin= Nasal Congestion GI Upset > 30mins: 2= Nausea/Diarrhea Tremor Observation of Outstretched Hands: 2= Slight Tremor Visible Yawning Observation: 1= 1-2x During Session Anxiety or Irritability: 2=Irritable/Anxious Goose Flesh Skin: 3=Piloerection COWS Score: 15 S Progress Note (SOAP) Subjective: Tremors, Body Aches, Nausea, Stomach Cramping, H/A, Interrupted Sleep. Objective: PT. A & O X 3, OBSERVED AMBULATING ON UNIT. NO ACUTE DISTRESS. 02/27/17 12:59 Vital Signs Temperature 97.2 F L 02/27/17 10:01 Pulse Rate 60 02/27/17 10:01 Respiratory Rate 16 02/27/17 10:01 Blood Pressure 105/61 02/27/17 10:01 O2 Sat by Pulse Oximetry (%) Laboratory Tests 02/26/17 02/27/17 02/27/17 21:37 07:00 07:00 WBC 5.4 RBC 4.08 Hgb 11.7 D Hct 35.4 MCV 86.8 MCH 28.7 MCHC 33.0 RDW 13.1 Plt Count 254 MPV 8.5 Sodium 143 Potassium 3.9 Chloride 107 Carbon Dioxide 31 Anion Gap 5 L BUN 13 Creatinine 0.8 Creat Clearance w eGFR > 60 Random Glucose 90 Calcium 8.4 L Total Bilirubin 0.5 D AST 14 L D ALT 23 Alkaline Phosphatase 49 Total Protein 6.2 L Albumin 2.9 L Urine Color [place] Urine Appearance Cloudy Urine pH 5.0 Ur Specific [place] >= 1.030 H Urine Protein 1+ H Urine Glucose (UA) Negative Urine Ketones Negative Urine Blood Negative Urine Nitrite Negative Urine Bilirubin Negative Urine Urobilinogen 2.0 Ur Leukocyte Esterase Negative Urine RBC 4 Urine WBC 2 Calcium Oxalate Crystal Many Urine Bacteria Rare Hyaline Casts 4 Urine Mucus Many RPR Titer 02/27/17 07:00 WBC RBC Hgb Hct MCV MCH MCHC RDW Plt Count MPV Sodium Potassium Chloride Carbon Dioxide Anion Gap BUN Creatinine Creat Clearance w eGFR Random Glucose Calcium Total Bilirubin AST ALT Alkaline Phosphatase Total Protein Albumin Urine Color Urine Appearance Urine pH Ur Specific [place] Urine Protein Urine Glucose (UA) Urine Ketones Urine Blood Urine Nitrite Urine Bilirubin Urine Urobilinogen Ur Leukocyte Esterase Urine RBC Urine WBC Calcium Oxalate Crystal Urine Bacteria Hyaline Casts Urine Mucus RPR Titer Nonreactive LABS NOTED. Assessment: 02/27/17 12:59 WITHDRAWAL SYMPTOMS. Plan: CONTINUE DETOX. PRN FLEXERIL FOR BODY ACHES / MUSCLE SPASMS. INCREASE DAILY PO FLUID INTAKE.
[2017-02-27] MEDS: NICOTINE POLACRILEX 4 MG GUM BC PRN (13:09)
--- NOTE | 2017-02-27 14:01 | CONSULT ---
[facility] Psychiatric Consult - Data Date of interview: 02/27/17 Admission source: [facility] Identifying data: Readmission to [facility] for this 31 y/o male seeking detox treatment on for heroin,amphetamines,cocaine,xanax and alcohol dependence.Patient is single without children,domiciled,unemployed and supported by relatives. Substance Abuse History: Conformed by the patient in this session. Smoking Cessation. Smoking history: Current every day smoker. Have you smoked in the past 12 months: Yes. Aproximately how many cigarettes per day: 20. Cigars Per Day: 0. Hx Chewing Tobacco Use: No. Initiated information on smoking cessation : Yes. 'Breaking Loose' booklet given: 02/26/17. - Substance & Tx. History. Hx Alcohol Use: No. Hx Substance Use: Yes. Substance Use Type: Cocaine, Heroin , Tranquilizers. Hx Substance Use Treatment: Yes (12/03-12/08/16 [facility]). - Substances Abused. Alprazolam (Xanax). Route: Oral. Frequency: 3-6 times per week. Amount used: 12 mg. Age of first use: 21. Date of Last Use: . Heroin. Route: Injection. Frequency: Daily. Amount used: 30 bags. Age of first use: 25. Date of Last Use: 02/26/17 Medical History: Patient endorses good general health. Psychiatric History: Patient admits to one psychiatric hospitalization ([facility]).Diagnosed with MDD,Anxiety Disorder and ADHD.Used to be prescribed celexa,gabapentin and ambien.Off these medications for several months.No current OPD care.Mr Walsh has no recollection of his last visit to a psychiatric OPD care provider (most recent script for celexa was filled on at [facility] # [id number]).No reported history of suicide attempts. Physical/Sexual Abuse/Trauma History: None reported. Additional Comment: Urine Drug Screen Results: ABUNDIO-Cocaine, OPI-Opiates, AMP- Amphetamines, MET-Methamphetamine, BZO-Benzodiazepines.Noted. Mental Status Exam - Mental Status Exam Alert and Oriented to: Time, Place, Person Cognitive Function: Good Patient Appearance: Unkempt, Disheveled Mood: Nervous, Withdrawn Affect: Mood Congruent Patient Behavior: Fatigued, Cooperative Speech Pattern: Clear Voice Loudness: Normal Thought Process: Goal Oriented Thought Disorder: Not Present Hallucinations: Denies Suicidal Ideation: Denies Homicidal Ideation: Denies Insight/Judgement: Poor Sleep: Poorly, Difficulty falling asleep Appetite: Good Muscle strength/Tone: Normal Gait/Station: Normal Psychiatric Findings - Problem List (Ross 1, 2,3) (1) Opioid dependence with withdrawal Current Visit: Yes Status: Acute (2) Uncomplicated sedative, hypnotic or anxiolytic withdrawal Current Visit: Yes Status: Acute (3) Cocaine dependence Current Visit: Yes Status: Acute Qualifiers: Substance use status: uncomplicated Qualified Code(s): F14.20 - Cocaine dependence, uncomplicated; F14.20 - Cocaine dependence, uncomplicated; F14.20 - Cocaine dependence, uncomplicated (4) Amphetamine dependence Current Visit: Yes Status: Acute (5) Nicotine dependence Current Visit: Yes Status: Acute Qualifiers: Nicotine product type: cigarettes Substance use status: in withdrawal Qualified Code(s): F17.213 - Nicotine dependence, cigarettes, with withdrawal; F17.213 - Nicotine dependence, cigarettes, with withdrawal (6) Drug-induced mood disorder Current Visit: Yes Status: Acute (7) Insomnia Current Visit: Yes Status: Acute Qualifiers: Insomnia type: unspecified Qualified Code(s): G47.00 - Insomnia, unspecified; G47.00 - Insomnia, unspecified - Initial Treatment Plan Initial Treatment Plan: Psychoeducation.Detoxification.Celexa 20 mg po daily + ambien 10 mg po hs.Side effects/benefits of both drugs are discussed with patient.He agrees with this careplan.Observation.
[2017-02-27] MEDS: BACLOFEN 10 MG TABLET (FP) PO PRN (14:47)
[2017-02-27] MEDS: THIAMINE HCL 100 MG TABLET (FP) PO SCH (22:40)
[2017-02-27] MEDS: ZOLPIDEM TARTRATE 5 MG TABLET PO PRN (23:17)
[2017-02-28] MEDS: GABAPENTIN 300 MG CAPSULE (FP) PO SCH ×3 (06:25→20:28)
[2017-02-28] MEDS ORDERED: CITALOPRAM HYDROBROMIDE 20 MG TABLET (FP) PO SCH (10:00)
[2017-02-28] MEDS: PRENATAL VITAMINS W/ FOLIC ACID TABLET (FP) PO SCH (10:35)
[2017-02-28] MEDS: diazePAM 5 MG TABLET PO SCH ×2 (10:36→22:28)
[2017-02-28] MEDS: NICOTINE 21 MG/24 HOURS TOPICAL PATCH TD SCH (10:37)
[2017-02-28] MEDS: METHADONE HCL 5 MG TABLET (FOR DETOX USE ONLY) PO SCH (10:37)
[2017-02-28] MEDS: diazePAM 5 MG TABLET PO PRN ×2 (14:51→18:56)
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
[2017-02-28] MEDS: NICOTINE POLACRILEX 4 MG GUM BC PRN ×2 (19:09→22:38)
--- NOTE | 2017-02-28 19:30 | PN ---
[facility] Progress Note Note: Psychiatry Attending's note : Met with patient. Medications discussed. Mr Walsh requests celexa 40 mg/day.Dose not taken for one week. Patient states that bottle of medication was [facility]. Review of pharmacy claims supports previous treatment with celexa. Patient is reliable. Plan : Celexa 20 mg po (starting dose now). Will increase to 30 mg/day in AM. Patient agrees with this careplan. Side effects/benefits discussed with the patient.
[2017-02-28] MEDS: CITALOPRAM HYDROBROMIDE 20 MG TABLET (FP) PO SCH (20:28)
[2017-02-28] MEDS: BACITRACIN 0.9 GM PACKET TP SCH (22:27)
[2017-02-28] MEDS: ZOLPIDEM TARTRATE 5 MG TABLET PO PRN (22:28)
[2017-02-28] MEDS: THIAMINE HCL 100 MG TABLET (FP) PO SCH (22:28)
[2017-02-28] MEDS: BACLOFEN 10 MG TABLET (FP) PO PRN (22:28)
[2017-03-01] MEDS: GABAPENTIN 300 MG CAPSULE (FP) PO SCH ×3 (06:37→22:30)
[2017-03-01] MEDS: PRENATAL VITAMINS W/ FOLIC ACID TABLET (FP) PO SCH (10:20)
[2017-03-01] MEDS: BACITRACIN 0.9 GM PACKET TP SCH ×2 (10:20→22:30)
[2017-03-01] MEDS: diazePAM 5 MG TABLET PO SCH ×2 (10:20→22:30)
[2017-03-01] MEDS: METHADONE HCL 5 MG TABLET (FOR DETOX USE ONLY) PO SCH (10:21)
[2017-03-01] MEDS: CITALOPRAM HYDROBROMIDE 20 MG TABLET (FP) PO SCH (10:21)
[2017-03-01] MEDS: NICOTINE 21 MG/24 HOURS TOPICAL PATCH TD SCH (10:21)
[2017-03-01] MEDS ORDERED: ONDANSETRON *ODT* 4 MG TABLET SL PRN (11:42)
[2017-03-01] MEDS ORDERED: NAPROXEN 500 MG TABLET (FP) PO ONE (11:42)
--- NOTE | 2017-03-01 11:45 | PN ---
BHS Progress Note (SOAP) Subjective: PT C/O HEADACHE,STOMACH CRAMPS/MUSCLE ACHES-RIGHT SIDE PAIN ON MOVEMENT,SWEATS, NAUSEA/NO VOMITING. Objective: 03/01/17 11:44 Vital Signs Temperature 96.9 F L 03/01/17 10:07 Pulse Rate 77 03/01/17 10:07 Respiratory Rate 18 03/01/17 10:07 Blood Pressure 115/65 03/01/17 10:07 O2 Sat by Pulse Oximetry (%) Laboratory Last Values WBC 5.4 K/mm3 (4.0-10.0) 02/27/17 07:00 RBC 4.08 M/mm3 (4.00-5.60) 02/27/17 07:00 Hgb 11.7 GM/dL (11.7-16.9) D 02/27/17 07:00 Hct 35.4 % (35.4-49) 02/27/17 07:00 MCV 86.8 fl (80-96) 02/27/17 07:00 MCH 28.7 pg (25.7-33.7) 02/27/17 07:00 MCHC 33.0 g/dl (32.0-35.9) 02/27/17 07:00 RDW 13.1 % (11.9-15.9) 02/27/17 07:00 Plt Count 254 K/MM3 (134-434) 02/27/17 07:00 MPV 8.5 fl (7.5-11.1) 02/27/17 07:00 Sodium 143 mmol/L (136-145) 02/27/17 07:00 Potassium 3.9 mmol/L (3.5-5.1) 02/27/17 07:00 Chloride 107 mmol/L (98-107) 02/27/17 07:00 Carbon Dioxide 31 mmol/L (21-32) 02/27/17 07:00 Anion Gap 5 (8-16) L 02/27/17 07:00 BUN 13 mg/dL (7-18) 02/27/17 07:00 Creatinine 0.8 mg/dL (0.7-1.3) 02/27/17 07:00 Creat Clearance w eGFR > 60 (>60) 02/27/17 07:00 Random Glucose 90 mg/dL (74-106) 02/27/17 07:00 Calcium 8.4 mg/dL (8.5-10.1) L 02/27/17 07:00 Total Bilirubin 0.5 mg/dL (0.2-1.0) D 02/27/17 07:00 AST 14 U/L (15-37) L D 02/27/17 07:00 ALT 23 U/L (12-78) 02/27/17 07:00 Alkaline Phosphatase 49 U/L (45-117) 02/27/17 07:00 Total Protein 6.2 g/dl (6.4-8.2) L 02/27/17 07:00 Albumin 2.9 g/dl (3.4-5.0) L 02/27/17 07:00 Urine Color Cecilia 02/26/17 21:37 Urine Appearance Cloudy 02/26/17 21:37 Urine pH 5.0 (5.0-8.0) 02/26/17 21:37 Ur Specific [place] >= 1.030 (1.005-1.025) H 02/26/17 21:37 Urine Protein 1+ (NEGATIVE) H 02/26/17 21:37 Urine Glucose (UA) Negative (NEGATIVE) 02/26/17 21:37 Urine Ketones Negative (NEGATIVE) 02/26/17 21:37 Urine Blood Negative (NEGATIVE) 02/26/17 21:37 Urine Nitrite Negative (NEGATIVE) 02/26/17 21:37 Urine Bilirubin Negative (NEGATIVE) 02/26/17 21:37 Urine Urobilinogen 2.0 mg/dL (0.2-1.0) 02/26/17 21:37 Ur Leukocyte Esterase Negative (NEGATIVE) 02/26/17 21:37 Urine RBC 4 /hpf (0-3) 02/26/17 21:37 Urine WBC 2 /hpf (3-5) 02/26/17 21:37 Calcium Oxalate Crystal Many /hpf (NONE SEEN) 02/26/17 21:37 Urine Bacteria Rare /hpf (NONE SEEN) 02/26/17 21:37 Hyaline Casts 4 /lpf 02/26/17 21:37 Urine Mucus Many 02/26/17 21:37 RPR Titer Nonreactive (NONREACTIVE) 02/27/17 07:00 Assessment: 03/01/17 11:44 WITHDRAWAL SX Plan: CONTINUE DETOX DIRECTED. INCREASE PO FLUIDS.
[2017-03-01] MEDS: CITALOPRAM HYDROBROMIDE 10 MG TABLET (FP) PO SCH (12:01)
[2017-03-01] MEDS: diazePAM 5 MG TABLET PO PRN ×2 (14:30→20:31)
[2017-03-01] MEDS: NICOTINE POLACRILEX 4 MG GUM BC PRN (22:30)
[2017-03-01] MEDS: NAPROXEN 500 MG TABLET (FP) PO SCH (22:30)
[2017-03-01] MEDS: THIAMINE HCL 100 MG TABLET (FP) PO SCH (22:30)
[2017-03-01] MEDS: ZOLPIDEM TARTRATE 5 MG TABLET PO PRN (22:30)
[2017-03-01] MEDS: BACLOFEN 10 MG TABLET (FP) PO PRN (22:33)
[2017-03-02] MEDS: GABAPENTIN 300 MG CAPSULE (FP) PO SCH ×3 (05:48→22:25)
[2017-03-02] MEDS ORDERED: METHADONE HCL 10 MG TABLET (FOR DETOX USE ONLY) PO SCH (10:00)
[2017-03-02] MEDS ORDERED: diazePAM 5 MG TABLET PO SCH (10:00)
[2017-03-02] MEDS: CITALOPRAM HYDROBROMIDE 10 MG TABLET (FP) PO SCH (10:29)
[2017-03-02] MEDS: PRENATAL VITAMINS W/ FOLIC ACID TABLET (FP) PO SCH (10:30)
[2017-03-02] MEDS: NAPROXEN 500 MG TABLET (FP) PO SCH ×2 (10:30→22:26)
[2017-03-02] MEDS: BACITRACIN 0.9 GM PACKET TP SCH ×2 (10:30→22:25)
[2017-03-02] MEDS: NICOTINE 21 MG/24 HOURS TOPICAL PATCH TD SCH (10:31)
[2017-03-02] MEDS: BACLOFEN 10 MG TABLET (FP) PO PRN ×2 (10:33→22:26)
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
--- NOTE | 2017-03-02 13:30 | PN ---
[facility] Progress Note Note: Psychiatry Attending's note : Met with patient." I did not need psychiatric evaluation." Mr Walsh is simply medication-seeking.Looking for 40 mg of celexa. He also wanted " to be sure " to get script for zolpidem at discharge. Otherwise,hospital course remains benign.No adverse events.Baseline. NO clinical indication for further psychiatric intervention.Stable mental status.
[2017-03-02] MEDS: ZOLPIDEM TARTRATE 5 MG TABLET PO PRN (21:53)
[2017-03-02] MEDS: THIAMINE HCL 100 MG TABLET (FP) PO SCH (22:25)
[2017-03-03] MEDS: GABAPENTIN 300 MG CAPSULE (FP) PO SCH (05:39)
[2017-03-03] MEDS ORDERED: METHADONE HCL 5 MG TABLET (FOR DETOX USE ONLY) PO SCH (06:00)
[2017-03-03 09:17] VITALS: BP 117/53; PULSE 73; TEMP 98.1
[2017-03-03] MEDS: BACLOFEN 10 MG TABLET (FP) PO PRN (10:29)
[2017-03-03] MEDS: BACITRACIN 0.9 GM PACKET TP SCH (10:29)
[2017-03-03] MEDS: CITALOPRAM HYDROBROMIDE 10 MG TABLET (FP) PO SCH (10:30)
[2017-03-03] MEDS: NAPROXEN 500 MG TABLET (FP) PO SCH (10:30)
[2017-03-03] MEDS: PRENATAL VITAMINS W/ FOLIC ACID TABLET (FP) PO SCH (10:30)
[2017-03-03] MEDS: NICOTINE 21 MG/24 HOURS TOPICAL PATCH TD SCH (10:30)
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
== END 2017-03-03 10:41 | disposition home or self-care (01) | DRG 773 ==
LOC: YASAS 16:27 → Y3N 20:59
PROVIDERS: ADMIT Internal Medicine; ATTEND Internal Medicine
PROC: HZ2ZZZZ Detoxification Services for Substance Abuse Treatment (ICD-10-PCS; principal; 2017-02-26)
DX: F11.23 Opioid dependence with withdrawal (principal); F13.230 Sedative, hypnotic or anxiolytic dependence with withdrawal, uncomplicated; F14.20 Cocaine dependence, uncomplicated; F15.20 Other stimulant dependence, uncomplicated; F17.213 Nicotine dependence, cigarettes, with withdrawal; F19.24 Other psychoactive substance dependence with psychoactive substance-induced mood disorder; F41.8 Other specified anxiety disorders; G47.00 Insomnia, unspecified; R63.4 Abnormal weight loss; Z68.23 Body mass index [BMI] 23.0-23.9, adult
CPT/HCPCS: 36415; 71101-TC-RT; 80053; 81003; 81015; 85027; 86593; 93005; 93010; J0475